=== PATIENT | male | born 1965 | race Caucasian/White ===

== ENCOUNTER 2018-12-26 05:13 | Inpatient (IN) | payer OTHER ==
[2018-12-26] VITALS (23 sets, daily range): BP systolic 107–142; BP diastolic 68–89; PULSE 74–84; RESP 12–20; Ht 165.1 cm; Wt 102.8 kg
[~2018-12-26] VITALS: Ht 165.1 cm; Wt 102.8 kg
[2018-12-26] MEDS: LACTATED RINGER'S 1,000 ML IV SCH (06:38)
--- NOTE | 2018-12-26 06:49 | PREAC ---
Date/Time of Note Date/Time of Note DATE: 12/26/18 TIME: 06:48 Anesthesia Eval and Record Evaluation Time Pre-Procedure Interview DATE: 12/26/18 TIME: 06:48 Age 53 Sex male NPO: 8 hrs Preoperative diagnosis Left Ankle Post Traumatic Arthritis Planned procedure Left Ankle Arthroscopy Past Medical History Past Medical History: Includes Musculoskeletal: Osteoarthritis GI: Obesity Surgery & Anesthesia Issues No known issue Meds Anticoagulation: Yes Beta Hilaria within 24 hr: Yes Reason Beta Hilaria not given: Pt. not on B-Hilaria No Active Prescriptions or Reported Meds Current Medications Lactated Ringer's 1,000 ml @ 25 mls/hr Q24H IV Last administered on 12/26/18at 06:38; Admin Dose 25 MLS/HR; Start 12/26/18 at 06:30 Meds reviewed: Yes Allergies Coded Allergies: No Known Allergy (Unverified , 12/26/18) Allergies Reviewed: Yes Labs/Studies Labs Reviewed: Reviewed by anesthesiologist test: N/A Studies: ECG (n/a), CXR (n/a) Pre-procedure Exam Last vitals Vital Signs Date Temp Pulse Resp B/P (MAP) Pulse Ox O2 O2 Flow FiO2 Time Delivery Rate 12/26/18 99.0 74 18 142/89 97 Room Air 05:41 (106) Airway: Adequate mouth opening, Adequate thyromental dist Mallampati: Mallampati II Teeth: Normal Lung: Normal Heart: Normal ASA Physical Status ASA physical status: 2 Emergency: None Planned Anesthetic General/MAC: ETT Nerve block: Femoral (left), Sciatic (left) Planned Pain Management Single shot nerve block, Parenteral pain med Pre-operative Attestations Prior to commencing anesthesia and surgery, the patient was re-evaluated, there was verification of: *The patient's identity *The results of appropriate recent lab work and preoperative vital signs *The above evaluation not changing prior to induction *Anesthetic plan, risk benefits, alternative and complications discussed with p atient/family; questions answered; patient/family understands, accepts and wishes to proceed. DALE DANG MD Dec 26, 2018 06:49
[2018-12-26] MEDS ORDERED: ROCURONIUM 50 MG INJ ONE (06:54)
[2018-12-26] MEDS ORDERED: CEFAZOLIN 1 GM INJ ONE ×2 (06:55→11:29)
[2018-12-26] MEDS ORDERED: PROPOFOL 20 ML ONE ×2 (06:55→11:29)
[2018-12-26] MEDS ORDERED: MIDAZOLAM 1 MG/ML 2 ML INJ ONE (06:55)
[2018-12-26] MEDS ORDERED: ROPIVACAINE 0.5 % 30 ML VIAL ONE ×2 (06:56→10:17)
[2018-12-26] MEDS ORDERED: OXYCODONE/ACETAMINOPHEN (5/325) TAB PO PRN ×2 (07:00)
[2018-12-26] MEDS ORDERED: FENTAnyl 50 MCG/ML VIAL IV PRN ×3 (07:00)
[2018-12-26] MEDS ORDERED: ONDANSETRON 4 MG INJ IV PRN ×2 (07:00→12:00)
[2018-12-26] MEDS ORDERED: HYDROmorphONE 1 MG/5 ML IV SYRINGE IV PRN ×3 (07:00)
[2018-12-26] MEDS ORDERED: EPHEDrine 25 MG/5 ML SYG IV PRN (07:00)
[2018-12-26] MEDS ORDERED: MEPERIDINE 25 MG INJ IV PRN (07:00)
[2018-12-26] MEDS ORDERED: LABETALOL HCL 20MG INJ IV PRN (07:00)
[2018-12-26] MEDS ORDERED: DIPHENHYDRAMINE 50 MG INJ IV PRN (07:00)
[2018-12-26] MEDS ORDERED: METOCLOPRAMIDE 10 MG INJ IV PRN (07:00)
[2018-12-26] MEDS ORDERED: ONDANSETRON 4 MG INJ ONE (07:58)
[2018-12-26] MEDS ORDERED: METOCLOPRAMIDE 10 MG INJ ONE (07:58)
[2018-12-26] MEDS ORDERED: KETOROLAC 30 MG INJ ONE ×2 (07:58→11:24)
[2018-12-26] MEDS ORDERED: DEXAMETHASONE 4 MG/ML 5 ML INJ ONE (07:58)
[2018-12-26] MEDS ORDERED: LABETALOL HCL 20MG INJ ONE (10:13)
[2018-12-26] MEDS ORDERED: POLYMYXIN/BACITRACIN 1L IRRIG ONE (10:17)
[2018-12-26] MEDS ORDERED: POVIDONE IODINE 10% 28.4 GM OINT ONE (10:17)
[2018-12-26] MEDS ORDERED: SUGAMMADEX SODIUM 200 MG/2 ML VIAL IV ONE (11:23)
--- NOTE | 2018-12-26 11:55 | OPPN ---
Date/Time of Note Date/Time of Note DATE: 12/26/18 TIME: 11:53 Operative Report Preoperative Diagnosis Left ankle end stage DJD Postoperative Diagnosis same Operation/Procedure Performed Left ankle arthroscopic arthrodesis Surgeon see signature line assistant front desk manager Masood León MD Anesthesia: general, other Estimated blood loss: 50 - 100 ml's Transfusion Required none Specimen none Grafts/Implants 2x screws Complications none SHRUTHI COOPER MD Dec 26, 2018 11:55
[2018-12-26] MEDS ORDERED: DIPHENHYDRAMINE 25 MG CAP PO PRN (12:00)
[2018-12-26] MEDS ORDERED: morphine 10 MG INJ IV PRN (12:00)
[2018-12-26] MEDS ORDERED: BISACODYL 10 MG SUPP PR PRN (12:00)
[2018-12-26] MEDS ORDERED: HYDROmorphONE 0.2 MG/ML PCA IV SCH ×3 (12:00→12:30)
[2018-12-26] MEDS: CEFAZOLIN 1 GM/50 ML (PMX) 50 ML IVPB SCH ×2 (12:36→20:18)
[2018-12-26] MEDS: OXYCODONE/ACETAMINOPHEN (5/325) TAB PO PRN (12:40)
--- NOTE | 2018-12-26 13:30 | OPR ---
DATE OF OPERATION: 12/26/2018 PREOPERATIVE DIAGNOSES: 1. Posttraumatic degenerative arthritis, left ankle. 2. Status post fracture dislocation with ORIF. 3. Status post hardware removal. POSTOPERATIVE DIAGNOSES: 1. Posttraumatic degenerative arthritis, left ankle. 2. Status post fracture dislocation with ORIF. 3. Status post hardware removal. OPERATIONS: 1. Arthroscopy of the left ankle with soft tissue distraction. 2. Extensive debridement of the ankle. 3. Insertion of Ignite and Augment into the arthrodesis site. 4. Arthrodesis of the left ankle with two 7.3 AO cannulated screws. 5. Use of fluoroscopy to verify position and alignment of the foot and ankle guide pin and screws. 6. Short-leg cast. SURGEON: Shruthi Leo MD [place] PERFORMER: Masood León MD ANESTHESIA: General with popliteal block. TOURNIQUET TIME: Again, as mentioned 135. DESCRIPTION OF PROCEDURE: The patient was taken to operating room and placed in supine position. Sa tisfactory popliteal block was given. Satisfactory general anesthesia was administered. Left thigh was secured in the thigh martin. Arms were carefully padded. Left leg was prepped and draped in usu al manner. Two grams Ancef were given intravenously. The left superficial peroneal nerve branch was marked out then the left leg was prepped and draped in the usual manner. Tourniquet was inflated to 250 mmHg. Soft tissue distraction was applied. There was diffuse degenerative change throughout th e ankle with areas of grade III and IV chondromalacia. Using a shaver and different angled curettes, all the articular cartilage was removed from the talus from the front to the back. A bur was used t o remove approximately 1 mm of bone to good bleeding surfaces throughout. Multiple "spot welds" were made to facilitate bleeding. After the talus was adequately prepared, all the articular cartilages were removed from the tibia and medial malleolus and fibula with shaver and ring curettes. Once all the articular cartilage had been removed, a bur was used to remove 1 mm of bone to good bleeding surf aces everywhere on the tibia and fibula. The soft tissue was peeled off the distal tibia. Osteophyt es were burred down with a bur. Multiple spot welds were made again on the tibia and medial malleolu s and fibula. Multiple drill holes were made with 0.062 K-wire. The instruments were then placed th rough the posterolateral portal. The soft tissue and all the articular cartilage was removed. Bur w as used to remove the bone and then spot welds were made. The Micro Vector was then inserted through the medial portal. The skin was marked and made an incisi on through the previous incision. Dissection was carried to subcutaneous tissue. Saphenous nerve an d vein were identified and retracted anteriorly. Guide pin was inserted from 7.3 AO cannulated screw set appropriately angled in the coronal and sagittal planes. It was checked in the AP and lateral p lanes and so it was perfect. The Micro Vector was then inserted through the lateral portal into the appropriate position on the distal tibia. Skin was marked. The incision was made through the previo us incision along the fibula and dissection was carried to subcutaneous tissue. Peroneal tendon colunga th was opened and the peroneal tendons were retracted. The guide pin was inserted through the fibula . angled appropriately in the AP and lateral planes. The wound was irrigated clear. Wounds were sandra sed with 3-0 black nylon except the anterolateral portal was left open. Ignite was mixed with blood and Augment was injected throughout the ankle and the wound was closed with 3-0 black nylon. The claudette rniquet was released. The fluoroscopy was brought in. The medial pin was advanced until it was just above the subtalar joint was measured, partially drilled and then the 7.3 mm screw was inserted. Ex cellent fixation was obtained. Guide pin was inserted through the fibula into the talar head and nec k. Depth was measured, partially drilled and then the appropriate length screw was inserted. Excell ent fixation was obtained again. Both guide pins were removed. There was no motion whatsoever on th e sagittal x-ray through the ankle. Fluoroscopic views, AP and lateral mortise showed excellent posi tion and alignment of the screws with the ankle at 90 degrees position. Wounds were irrigated with a ntibiotic solution. The deep tissues were closed with 2-0 undyed Vicryl medially and then 3-0 undyed Vicryl. The lateral wounds were closed with a running 2-0 undyed Vicryl through the peroneal tendon sheath and 2-0 and 3-0 undyed Vicryl through the subcutaneous tissue. Skin was closed with 4-0 lo k nylon in both sides. Saphenous nerve block was done with 0.5% ropivacaine. Compression was applie d as well as short-leg cast in neutral position. Interprocedure sponge and needle count was correct. The patient tolerated procedure well and the cast was split in the recovery room. SENIOR FUNCTIONAL ANALYST ORTHOPEDIC SURGEON: During the procedure, an executive chef assistant orthopedic surgeon was used at [facility]. Search Manager helped with distracting the ankle, maneuvering the arthroscope. In addition, I weiss d to hold the ankle reduced while my executive chef assistant drilled the guide pin and inserted the screw. Without a skilled orthopedic surgeon executive chef assistant, this could not have been done and thus, should be compensate d appropriately. Dictated By: SHRUTHI VELAZCO/NINA Conf#: [id number] DID#: [id number]
[2018-12-26] MEDS: SOD CHLORIDE 0.9% 1,000 ML IV SCH (14:07)
[2018-12-26] MEDS ORDERED: [UNRECOGNIZED DRUG - REMARK] XX SCH (17:30)
[2018-12-26] MEDS: SENNA/DOCUSATE NA (8.6MG/50MG) TAB PO SCH (20:18)
[2018-12-27] MEDS: SOD CHLORIDE 0.9% 1,000 ML IV SCH ×2 (00:13→07:55)
[2018-12-27 00:55] VITALS: BP 112/59; PULSE 83; RESP 17
[2018-12-27] MEDS: CEFAZOLIN 1 GM/50 ML (PMX) 50 ML IVPB SCH ×2 (03:46→13:03)
[2018-12-27] MEDS: LACTATED RINGER'S 1,000 ML IV SCH (06:26)
[2018-12-27 07:45] VITALS: BP 121/68; PULSE 78; RESP 19
[2018-12-27] MEDS: SENNA/DOCUSATE NA (8.6MG/50MG) TAB PO SCH (09:56)
[2018-12-27] MEDS: OXYCODONE/ACETAMINOPHEN (5/325) TAB PO PRN ×2 (10:36→15:15)
--- NOTE | 2018-12-27 12:16 | PAC ---
Date/Time of Note Date/Time of Note DATE: 12/27/18 TIME: 12:16 Post-Anesthesia Notes Post-Anesthesia Note Last documented vital signs Vital Signs Date Temp Pulse Resp B/P (MAP) Pulse Ox O2 O2 Flow FiO2 Time Delivery Rate 12/27/18 97.1 78 19 121/68 98 12:45 (85) 12/26/18 Nasal 2.0 20:00 Cannula Activity: WNL Respiratory function: WNL Cardiovascular function: WNL Mental status: Baseline Pain reasonably controlled: Yes Hydration appropriate: Yes Nausea/Vomiting absent: Yes DALE DANG MD Dec 27, 2018 12:16
[2018-12-27 15:05] VITALS: BP 128/62; PULSE 82; RESP 18
[2018-12-27] MEDS ORDERED: RIVAROXABAN 10 MG TABLET PO SCH (17:55)
[2018-12-28] MEDS ORDERED: MAGNESIUM HYDROXIDE 30ML CUP PO SCH (21:00)
--- NOTE | 2018-12-29 03:44 | DS ---
DATE OF ADMISSION: 12/26/2018 DATE OF DISCHARGE: 12/27/2018 DISCHARGE DIAGNOSIS: Severe degenerative arthritis, left ankle. SURGERY: On 12/26: 1. Arthroscopy of the left ankle. 2. Extensive debridement. 3. Insertion of Ignite and Augment into the fusion site. 4. Arthrodesis of the left ankle with two 7.3 mm screws. HISTORY OF PRESENT ILLNESS: The patient is a 53-year-old male status post fracture-dislocation with open reduction and fixation. The hardware has been removed and he has post-traumatic degenerative ar thritis and admitted now for surgery because of persistent pain. PAST MEDICAL HISTORY: See the history and physical record. PHYSICAL EXAMINATION: Normal except for the orthopedic exam which revealed diffuse pain in the ankle , healed incisions in the ankle with decreased range of motion and strength in the ankle. DIAGNOSTIC STUDIES: Laboratory was normal. Chest x-ray was clear. EKG was stable. HOSPITAL COURSE: The patient was taken to the operating room and underwent above-mentioned procedure . Postoperatively, he was up ambulating the first postoperative day. He had physical therapy twice and was considered stable to getting around and going home. DISCHARGE MEDICATIONS: He was discharged on pain medication. FOLLOWUP: He will be followed in the office in 1 week. CONDITION ON DISCHARGE: When he was discharged, he was stable. Dictated By: SHRUTHI VELAZCO/NINA Conf#: [id number] DID#: [id number]
--- NOTE | 2019-01-01 18:08 | HP ---
DATE OF ADMISSION: 12/26/2018 DATE OF NOTE: 12/27/2018 The patient was seen today by myself. He is 1 day after undergoing arthroscopic arthrodesis of his l eft ankle. He is feeling pretty good. His block is still working. He has been using his [employer] SENIOR SPECIALIST, howev er, a fair amount. On exam, pleasant male, oriented x3. The cast in place. Moves his toes. Neurologically, minimally diminished to light touch. Has good capillary filling. Toes are pink. ASSESSMENT: The patient progressing satisfactorily, left ankle status post fusion. PLAN: 1. He will be nonweightbearing with physical therapy twice 2. The nurses will call me in the afternoon. If he graduates and is passed by the physical therapis t, he will go home on his pain medication. 3. The patient has a followup visit to see me in 1 week. Dictated By: SHRUTHI COOPER MD RF/NTS Conf#: [id number] DID#: [id number] CC: SHRUTHI COOPER MD;*EndCC*
== END 2018-12-27 16:40 | disposition home or self-care (01) | DRG 494 ==
LOC: SDS 05:13 → REC 11:55 → MS1 13:01
PROVIDERS: ADMIT Orthopaedic Surgery; ATTEND Orthopaedic Surgery
PROC: 0SGG44Z Fusion of Left Ankle Joint with Internal Fixation Device, Percutaneous Endoscopic Approach (ICD-10-PCS; 2018-12-26)
PROC: 0SBG4ZZ Excision of Left Ankle Joint, Percutaneous Endoscopic Approach (ICD-10-PCS; principal; 2018-12-26 07:00)
DX: M19.172 Post-traumatic osteoarthritis, left ankle and foot (principal); S82.52XS Displaced fracture of medial malleolus of left tibia, sequela; X50.1XXS Overexertion from prolonged static or awkward postures, sequela
CPT/HCPCS: 73610; 97116; 97162; 97530; C1713; J0690; J1100; J1170; J1885; J2250; J2405; J2765; J2795; J3010; J7030; J7120